=== PATIENT | female | born 1940 | race Caucasian/White ===

== ENCOUNTER 2016-12-30 10:59 | Emergency (ER) | payer MEDICARE, BC ==
[~2016-12-30] VITALS: Ht 172.7 cm; Wt 90.7 kg
[~2016-12-30 10:59] MED LIST: CERTAVITE SR-AN1 TAB PO; COREG12.5 MG PO; COZAAR50 MG PO; DITROPAN XL10 MG PO; ELIQUIS5 MG PO; FISH OIL1 GM PO; FLUOCINONIDE-E60 GM TOP; GENICIN500 MG PO; IRON325 M1 PO; LIPITOR40 MG PO; MIRALAX17 GM PO; NITROSTAT0.4 MG SL; PREMARIN0.625 MG VAG; PRILOSEC20 MG PO; SYNTHROID88 MCG PO; TOPROL XL25 MG PO
[2016-12-30] MEDS ORDERED: COZAAR100 MG PO (13:46)
[2016-12-30] MEDS ORDERED: SYNTHROID50 MCG PO (13:49)
[2016-12-30] MEDS ORDERED: ULTRAM50 MG PO (13:52)
[2016-12-30] MEDS ORDERED: ZOLOFT25 MG PO (13:53)
== END 2016-12-30 11:53 | disposition short-term general hospital (02) ==
LOC: ER 10:59
DX: B35.1 Tinea unguium (principal)

== ENCOUNTER 2017-02-17 19:26 | Observation (INO) | payer MEDICARE, BC ==
[~2017-02-17] VITALS: Ht 172.7 cm; Wt 90.7 kg
[~2017-02-17 19:26] MED LIST changes: +COZAAR100 MG PO; +SYNTHROID50 MCG PO; +ULTRAM50 MG PO; +ZOLOFT25 MG PO
[2017-02-17] MEDS ORDERED: COREG25 MG PO (22:14)
[2017-02-17] MEDS ORDERED: SYNTHROID75 MCG PO (22:15)
[2017-02-17] MEDS ORDERED: MIRALAX17 GM PO (22:18)
[2017-02-17] MEDS ORDERED: CORDARONE200 MG PO (22:20)
[2017-02-17] MEDS ORDERED: ELIQUIS5 MG PO (22:22)
[2017-02-18] MEDS ORDERED: CULTURELLE1 CAP PO (10:51)
[2017-02-18] MEDS ORDERED: ZOFRAN ODT4 MG PO (10:51)
[2017-02-18] MEDS ORDERED: METAMUCIL MULT660 GM PO (11:01)
== END 2017-02-18 11:22 | disposition short-term general hospital (02) ==
LOC: ER 19:26 → IP 22:24 → OBS 22:24 → IP 22:24
PROVIDERS: ADMIT Family Medicine
DX: R11.2 Nausea with vomiting, unspecified (principal); R19.7 Diarrhea, unspecified; I48.91 Unspecified atrial fibrillation; E86.0 Dehydration; I25.10 Atherosclerotic heart disease of native coronary artery without angina pectoris; E78.00 Pure hypercholesterolemia, unspecified; I10 Essential (primary) hypertension; E03.9 Hypothyroidism, unspecified; E87.6 Hypokalemia; M19.90 Unspecified osteoarthritis, unspecified site; N17.9 Acute kidney failure, unspecified; G47.33 Obstructive sleep apnea (adult) (pediatric); Z79.01 Long term (current) use of anticoagulants; Z79.899 Other long term (current) drug therapy; Z88.8 Allergy status to other drugs, medicaments and biological substances
CPT/HCPCS: A9150; G0378; J2405

== ENCOUNTER → 2017-03-17 | Outpatient (CLI) | payer MEDICARE, BC ==
[~2017-03-17] MED LIST changes: +CORDARONE200 MG PO; +COREG25 MG PO; +CULTURELLE1 CAP PO; +METAMUCIL MULT660 GM PO; +SYNTHROID75 MCG PO; +ZOFRAN ODT4 MG PO
== END | disposition short-term general hospital (02) ==
LOC: CLSURG 10:16
DX: Z48.815 Encounter for surgical aftercare following surgery on the digestive system (principal); Z87.19 Personal history of other diseases of the digestive system; Z90.49 Acquired absence of other specified parts of digestive tract

== ENCOUNTER → 2017-04-13 | Outpatient (CLI) | payer MEDICARE, BC | END | disposition short-term general hospital (02) | LOC: CLPHYS 09:09 | DX: G56.22 Lesion of ulnar nerve, left upper limb (principal) ==